=== PATIENT | female | born 1950 | race Caucasian/White ===

== ENCOUNTER 2018-09-06 11:10 | Inpatient (IN) | payer MEDICARE, MEDICAID ==
[2018-09-06] VITALS (11 sets, daily range): BP systolic 99–152; BP diastolic 54–87; BMI 17.0
[~2018-09-06] VITALS: Ht 165.1 cm; Wt 49.5 kg
[~2018-09-06 11:10] MED LIST changes: -GABA-547 PO; -IPRA3AMP10 IH; -MONT10TA4 PO; -PRED20TA6 PO
--- NOTE | 2018-09-06 11:16 | ER Report ---
History and Physical Time Seen By MD: 11:16 HPI/ROS CHIEF COMPLAINT: Shortness of breath HISTORY OF PRESENT ILLNESS: 68-year-old female patient presents to emergency room with complaint of shortness of breath. Patient states that she started ge tting sick on Friday. She states that she was having worsening shortness of breath for the last couple days. Today she states that she was significant short of breath. Patient states that she does not have oxygen at home. She states that she has not had any noticeable fever or chills. She states she is not taking any medication for this. She denies any nausea, vomiting or diarrhea. She denies any changes in her appetite. Patient states that she has any difficulties eating or drinking. Patient states she does have some pain to her upper chest that radiates up into her neck. She feels like this is more related with having to work to breathe. She states she does feel better now that she has supplemental oxygen on. REVIEW OF SYSTEMS: Respiratory: As noted above Cardiovascular: As noted above. Gastrointestinal: No vomiting, no abdominal pain. Musculoskeletal: No back pain. Allergies: Coded Allergies: Penicillins (Verified Allergy, Mild, RASH, SWELLING, 09/06/18) Home Meds Active Scripts Ipratropium/Albuterol Sulfate (IPRAT-ALBUT 0.5-3(2.5) MG/3 ML) 3 Ml Ampul.neb, 3 ML IH Q4-6H PRN for SHORTNESS OF BREATH, #1 BOX Prov:MARGO JACOBSEN [facility] 09/06/18 Prednisone (PREDNISONE) 20 Mg Tablet, 20 MG PO BID, #10 TAB Prov:MARGO JACOBSEN [facility] 09/06/18 Oseltamivir Phosphate (TAMIFLU) 75 Mg Cap, 75 MG PO BID, #9 CAP Prov:MARGO JACOBSEN [facility] 09/06/18 Reported Medications Montelukast Sodium (MONTELUKAST SODIUM) 10 Mg Tablet, 10 MG PO QDAY 09/06/18 Gabapentin (GABAPENTIN) 100 Mg Capsule, 100 MG PO HS 09/06/18 Ibuprofen (ADVIL) 200 Mg Tablet, 3 TAB PO BID 08/27/16 Albuterol Sulfate (VENTOLIN HFA) 18 Gm Inh, 2 PUFF INH Q4-6H, INH 08/27/16 Budesonide/Formoterol Fumarate (SYMBICORT 160-4.5 MCG INHALER) 10.2 Gm Inh, 10.2 GM INH BID, INH 08/27/16 Discontinued Scripts Prednisone 10 Mg Tab (PREDNISONE 10 MG TAB) 10 Mg Tablet, 10 MG PO DIRECTED, #30 TAB Take 4 tabs daily x 3 days, then 3 tab daily x 3 days, then 2 tabs daily x 3 days, then 1 tab daily x 3 days. Prov:MELINDA SAHA DO 08/30/16 Oseltamivir Phosphate (TAMIFLU) 75 Mg Cap, 75 MG PO BID, #10 CAP Prov:MELINDA SAHA DO 08/30/16 Past Medical/Surgical History Patient has a past medical history of pneumonia, influenza, COPD, arthritis. Patient has no pertinent surgical history. Reviewed Nurses Notes: Yes Hx Smoking: Yes Smoking Status: Current: Some Days Smoker Exposure to Second Hand Smoke?: No Hx Substance Use Disorder: No Hx Alcohol Use: Yes (Stopped 13 years ago.) Constitutional Vital Sign - Last 24 Hours 09/06/18 09/06/18 09/06/18 09/06/18 11:10 11:17 11:24 11:24 Temp 97.7 Pulse 103 103 Resp 22 B/P (MAP) 148/84 (105) 148/84 Pulse Ox 80 93 O2 Delivery Room Air Nasal Cannula O2 Flow Rate 3.0 09/06/18 09/06/18 09/06/18 09/06/18 11:30 11:35 11:35 11:40 Pulse 101 91 Resp 26 20 B/P (MAP) 156/86 (109) Pulse Ox 94 95 O2 Delivery Nasal Cannula Nasal Cannula O2 Flow Rate 3.0 3 09/06/18 09/06/18 09/06/18 09/06/18 11:42 12:00 12:10 12:15 Pulse 99 87 86 Resp 26 19 18 B/P (MAP) 124/79 (94) Pulse Ox 95 95 O2 Delivery Nasal Cannula Nasal Cannula O2 Flow Rate 3 3 09/06/18 09/06/18 09/06/18 09/06/18 12:45 12:49 12:50 12:50 Pulse 113 115 Resp 44 32 B/P (MAP) 162/91 (114) Pulse Ox 84 94 O2 Delivery Nasal Cannula Non-Rebreather O2 Flow Rate 3 15.0 09/06/18 09/06/18 09/06/18 09/06/18 12:54 12:58 12:58 12:58 Pulse 106 101 Resp 19 18 Pulse Ox 94 93 O2 Delivery Bi-PAP FiO2 40.0 40.0 09/06/18 09/06/18 09/06/18 09/06/18 12:59 12:59 13:00 13:04 Pulse 107 109 106 Resp 18 19 16 B/P (MAP) 180/129 (146) Pulse Ox 93 93 93 O2 Delivery Bi-PAP 09/06/18 13:09 Pulse 99 Resp 14 Pulse Ox 94 Physical Exam General Appearance: The patient is alert, has no immediate need for airway protection and no current signs of toxicity. Respiratory: Chest is non tender, lungs are diminished with wheezing to auscultation. Cardiac: regular rate and rhythm Gastrointestinal: Abdomen is soft and non tender, no masses, bowel sounds normal. Musculoskeletal: Neck: Neck is supple and non tender. Extremities have full range of motion and are non tender. Skin: No rashes or lesions. DIFFERENTIAL DIAGNOSIS: After history and physical exam differential diagnosis was considered for shortness of breath including but not limited to pulmonary infectious process, COPD, asthma, pulmonary embolus and congestive heart failure. Medical Decision Making Data Points Result Diagram: 09/06/18 1044 09/06/18 1044 Laboratory Hematology Test 09/06/18 00:00 09/06/18 10:44 09/06/18 11:22 09/06/18 12:47 Influenza Virus Type A (PCR) Positive (NEGATIVE) Influenza Virus Type B (PCR) Negative (NEGATIVE) Red Blood Count 6.19 M/uL (4.17-5.56) Mean Corpuscular Volume 90.5 fL (80.0-96.0) Mean Corpuscular Hemoglobin 29.9 pg (26.0-33.0) Mean Corpuscular Hemoglobin Concent 33.0 g/dL (32.0-36.0) Red Cell Distribution Width 15.8 % (11.5-14.5) Mean Platelet Volume 8.3 fL (7.2-11.1) Neutrophils (%) (Auto) 93.8 % (39.4-72.5) Lymphocytes (%) (Auto) 1.9 % (17.6-49.6) Monocytes (%) (Auto) 3.7 % (4.1-12.4) Eosinophils (%) (Auto) 0.5 % (0.4-6.7) Basophils (%) (Auto) 0.1 % (0.3-1.4) Nucleated RBC Relative Count (auto) 0.1 /100WBC Neutrophils # (Auto) 12.8 K/uL (2.0-7.4) Lymphocytes # (Auto) 0.3 K/uL (1.3-3.6) Monocytes # (Auto) 0.5 K/uL (0.3-1.0) Eosinophils # (Auto) 0.1 K/uL (0.0-0.5) Basophils # (Auto) 0.0 K/uL (0.0-0.1) Nucleated RBC Absolute Count (auto) 0.02 K/uL Peripheral Blood Smear Yes Y/N Sodium Level 137 mmol/L (137-145) Potassium Level 4.6 mmol/L (3.5-5.0) Chloride Level 99 mmol/L (98-107) Carbon Dioxide Level 31 mmol/L (22-31) Blood Urea Nitrogen 14 mg/dl (7-18) Creatinine 0.60 mg/dl (0.52-1.04) Glomerular Filtration Rate Calc > 60.0 Random Glucose 101 mg/dl (75-110) Calcium Level 9.7 mg/dl (8.4-10.2) Total Bilirubin 1.4 mg/dl (0.2-1.3) Aspartate Amino Transf (AST/SGOT) 140 U/L (0-35) Alanine Aminotransferase (ALT/SGPT) 124 U/L (0-56) Alkaline Phosphatase 296 U/L (0-126) Troponin I < 0.012 ng/ml B-Type Natriuretic Peptide 444 pg/ml (0-100) Total Protein 7.8 g/dl (6.3-8.2) Albumin 4.7 g/dl (3.5-5.0) Serum Alcohol < 10 mg/dl Blood Gas Puncture Site Right radial Blood Gas Patient Temperature 97.7 DEGREES Arterial Blood pH 7.31 (7.35-7.45) Arterial Blood Partial Pressure CO2 51 mmHg (32-37) Arterial Blood Partial Pressure O2 97 mmHg (60-80) Arterial Blood HCO3 26 mmol/L (20-26) Arterial Blood Oxygen Saturation 94 % (92-100) Arterial Blood Base Excess -1.0 mmol/L Hernando Test Acceptable Oxygen Liters/Minute 37 Urine Color Stefani Urine Clarity Clear Urine pH 5.0 pH (4.8-9.5) Urine Specific [place] 1.021 Urine Protein Negative mg/dL (NEGATIVE) Urine Glucose (UA) Negative mg/dL (NEGATIVE) Urine Ketones Trace mg/dL (NEGATIVE) Urine Blood Negative (NEGATIVE) Urine Nitrite Negative (NEGATIVE) Urine Bilirubin Negative (NEGATIVE) Urine Urobilinogen 4.0 mg/dL (0.2-1.9) Urine Leukocyte Esterase Negative (NEGATIVE) Urine RBC 1 /HPF (0-2/HPF) Urine WBC 1 /HPF (0-5/HPF) Urine Squamous Epithelial Cells Few /LPF (</=FEW) Urine Bacteria Negative /HPF (NONE-FEW) Urine Hyaline Casts Few /LPF (NONE-FEW) Urine Mucus Few /HPF (NONE-FEW) Chemistry Test 09/06/18 00:00 09/06/18 10:44 09/06/18 11:22 09/06/18 12:47 Influenza Virus Type A (PCR) Positive (NEGATIVE) Influenza Virus Type B (PCR) Negative (NEGATIVE) White Blood Count 13.7 k/uL (4.5-11.0) Red Blood Count 6.19 M/uL (4.17-5.56) Hemoglobin 18.5 g/dL (12.0-16.0) Hematocrit 56.0 % (34.0-47.0) Mean Corpuscular Volume 90.5 fL (80.0-96.0) Mean Corpuscular Hemoglobin 29.9 pg (26.0-33.0) Mean Corpuscular Hemoglobin Concent 33.0 g/dL (32.0-36.0) Red Cell Distribution Width 15.8 % (11.5-14.5) Platelet Count 886 K/uL (150-450) Mean Platelet Volume 8.3 fL (7.2-11.1) Neutrophils (%) (Auto) 93.8 % (39.4-72.5) Lymphocytes (%) (Auto) 1.9 % (17.6-49.6) Monocytes (%) (Auto) 3.7 % (4.1-12.4) Eosinophils (%) (Auto) 0.5 % (0.4-6.7) Basophils (%) (Auto) 0.1 % (0.3-1.4) Nucleated RBC Relative Count (auto) 0.1 /100WBC Neutrophils # (Auto) 12.8 K/uL (2.0-7.4) Lymphocytes # (Auto) 0.3 K/uL (1.3-3.6) Monocytes # (Auto) 0.5 K/uL (0.3-1.0) Eosinophils # (Auto) 0.1 K/uL (0.0-0.5) Basophils # (Auto) 0.0 K/uL (0.0-0.1) Nucleated RBC Absolute Count (auto) 0.02 K/uL Peripheral Blood Smear Yes Y/N Glomerular Filtration Rate Calc > 60.0 Calcium Level 9.7 mg/dl (8.4-10.2) Total Bilirubin 1.4 mg/dl (0.2-1.3) Aspartate Amino Transf (AST/SGOT) 140 U/L (0-35) Alanine Aminotransferase (ALT/SGPT) 124 U/L (0-56) Alkaline Phosphatase 296 U/L (0-126) Troponin I < 0.012 ng/ml B-Type Natriuretic Peptide 444 pg/ml (0-100) Total Protein 7.8 g/dl (6.3-8.2) Albumin 4.7 g/dl (3.5-5.0) Serum Alcohol < 10 mg/dl Blood Gas Puncture Site Right radial Blood Gas Patient Temperature 97.7 DEGREES Arterial Blood pH 7.31 (7.35-7.45) Arterial Blood Partial Pressure CO2 51 mmHg (32-37) Arterial Blood Partial Pressure O2 97 mmHg (60-80) Arterial Blood HCO3 26 mmol/L (20-26) Arterial Blood Oxygen Saturation 94 % (92-100) Arterial Blood Base Excess -1.0 mmol/L Hernando Test Acceptable Oxygen Liters/Minute 37 Urine Color Stefani Urine Clarity Clear Urine pH 5.0 pH (4.8-9.5) Urine Specific [place] 1.021 Urine Protein Negative mg/dL (NEGATIVE) Urine Glucose (UA) Negative mg/dL (NEGATIVE) Urine Ketones Trace mg/dL (NEGATIVE) Urine Blood Negative (NEGATIVE) Urine Nitrite Negative (NEGATIVE) Urine Bilirubin Negative (NEGATIVE) Urine Urobilinogen 4.0 mg/dL (0.2-1.9) Urine Leukocyte Esterase Negative (NEGATIVE) Urine RBC 1 /HPF (0-2/HPF) Urine WBC 1 /HPF (0-5/HPF) Urine Squamous Epithelial Cells Few /LPF (</=FEW) Urine Bacteria Negative /HPF (NONE-FEW) Urine Hyaline Casts Few /LPF (NONE-FEW) Urine Mucus Few /HPF (NONE-FEW) Toxicology Test 09/06/18 10:44 Serum Alcohol < 10 mg/dl Urinalysis Test 09/06/18 12:47 Urine Color Stefani Urine Clarity Clear Urine pH 5.0 pH (4.8-9.5) Urine Specific [place] 1.021 Urine Protein Negative mg/dL (NEGATIVE) Urine Glucose (UA) Negative mg/dL (NEGATIVE) Urine Ketones Trace mg/dL (NEGATIVE) Urine Blood Negative (NEGATIVE) Urine Nitrite Negative (NEGATIVE) Urine Bilirubin Negative (NEGATIVE) Urine Urobilinogen 4.0 mg/dL (0.2-1.9) Urine Leukocyte Esterase Negative (NEGATIVE) Urine RBC 1 /HPF (0-2/HPF) Urine WBC 1 /HPF (0-5/HPF) Urine Squamous Epithelial Cells Few /LPF (</=FEW) Urine Bacteria Negative /HPF (NONE-FEW) Urine Hyaline Casts Few /LPF (NONE-FEW) Urine Mucus Few /HPF (NONE-FEW) EKG/Imaging EKG Interpretation 12 lead EKG: Rhythm: normal sinus rhythm [place]: Left axis deviation QRS: Left ventricular hypertrophy with QRS widening ST segments: normal Imaging 2 VIEWS CHEST INDICATION: Respiratory distress. COMPARISON: 08/28/2016. FINDINGS: Cardiomediastinal silhouette and pulmonary vessels within normal limits. There is no focal infiltrate or lobar consolidation. There is no pneumothorax or pleural effusion. Mild emphysematous changes are again present along with chronic interstitial changes and postinflammatory changes seen apices. No discrete nodule. Upper abdomen is unremarkable. No acute bony abnormality. IMPRESSION: 1. Stable chest without acute cardiopulmonary disease. Report Dictated By: Stuart Riley at 09/06/2018 12:04 PM Report E-Signed By: Stuart Riley at 09/06/2018 12:06 PM ED Course/Re-evaluation ED Course Patient was admitted to exam room, history and physical were obtained. Differential diagnoses were considered. On examination lungs were diminished with wheezing, heart was regular, abdomen was soft nontender. An IV was started, a CBC, CMP, troponin, EKG, chest x-ray, influenza screen were done. Patient did have an elevated BNP of 444, the last time that was measured it was 307. An ABG was done which showed significant CO2 retention. The patient received a dose of Levaquin 25 mg of Solu-Medrol, a DuoNeb. She had significant improvement in her comfort with that. Patient was resting comfortably. I did discuss the lab results, including negative troponin, unremarkable CMP. Patient did have an elevated white count of 13,000 with left shift. I did discuss with patient that she is positive for influenza A and started her on Tamiflu. She felt as if she was able to go home. I began making arrangements for her to go home including home oxygen. I did want a urinalysis as the patient did have an elevated white count. When the patient got up to go to the bathroom she became very short of breath. When we got back to the emergency room she is still having significant amounts shortness of breath and felt so she is not able to breathe. We did give her some morphine and some Ativan which seemed to help, however we'll slowly had to put her on BiPAP. Has seemed to help considerably. At that time was decided the patient was not able to go home. I believe that the patient has a COPD exacerbation caused by the influenza virus. However think that she has such little reserves that even getting up to the bathroom just takes a major toll on her. I discussed the case with Dr. Herron, hospitalist, who agreed to accept the patient for admission to the ICU. The urinalysis was unremarkable. Chest x-ray was also negative. Decision to Disposition Date: Sep 06, 2018 Decision to Disposition Time: 12:33 Depart Departure Latest Vital Signs Vital Signs Date Time Temp Pulse Resp B/P (MAP) Pulse Ox O2 Delivery O2 Flow Rate FiO2 09/06/18 13:09 99 14 94 09/06/18 13:00 180/129 (146) 09/06/18 12:59 Bi-PAP 09/06/18 12:58 40.0 09/06/18 12:50 15.0 09/06/18 11:24 97.7 Impression: Primary Impression: COPD exacerbation Additional Impression: Influenza A Condition: Condition Unchanged Disposition: Admitted from ER Referrals: KELSIE GARCIA MD (PCP) New Scripts Ipratropium/Albuterol Sulfate (IPRAT-ALBUT 0.5-3(2.5) MG/3 ML) 3 Ml Ampul.neb 3 ML IH Q4-6H PRN for SHORTNESS OF BREATH, #1 BOX Prov: MARGO JACOBSEN 09/06/18 Prednisone (PREDNISONE) 20 Mg Tablet 20 MG PO BID, #10 TAB Prov: MARGO JACOBSEN 09/06/18 Oseltamivir Phosphate (TAMIFLU) 75 Mg Cap 75 MG PO BID, #9 CAP Prov: MARGO JACOBSEN 09/06/18 Problem Qualifiers MARGO JACOBSEN Sep 06, 2018 11:16
[2018-09-06] MEDS ORDERED: NS(*) 0.9% 500 ML BAG 500 ML IV ONE (11:22)
[2018-09-06] MEDS ORDERED: ALBUTEROL/IPRATROPIUM 3 ML NEB NEB ONE (11:25)
[2018-09-06] MEDS ORDERED: methylPREDNIS SUCC 125 MG/2ML IVP ONE (11:25)
[2018-09-06 11:32] LABS: PLATELET COUNT, AUTOMATED 886 K/uL (150-450)
[2018-09-06] MEDS ORDERED: MONT10TA4 PO (11:33)
[2018-09-06] MEDS ORDERED: GABA-547 PO (11:33)
[2018-09-06] MEDS ORDERED: OSELTAMIVIR PHOS 75 MG CAP PO ONE (12:10)
--- NOTE | 2018-09-06 12:10 | RADIOLOGY IMAGING REPORT ---
FACILITY: [facility] PATIENT NAME: Suyapa Álvarez : 1950 MR: [id number] V: [id number] EXAM DATE: ORDERING PHYSICIAN: MARGO JACOBSEN TECHNOLOGIST: Location: [facility] - [place] Patient: Suyapa Álvarez : 1950 Visit/Account:[id number] Date of Sevice: 09/06/2018 2 VIEWS CHEST INDICATION: Respiratory distress. COMPARISON: 08/28/2016. FINDINGS: Cardiomediastinal silhouette and pulmonary vessels within normal limits. There is no focal infiltrate or lobar consolidation. There is no pneumothorax or pleural effusion. Mild emphysematous changes are again present along with chronic interstitial changes and postinflamma tory changes seen apices. No discrete nodule. Upper abdomen is unremarkable. No acute bony abnormality. IMPRESSION: 1. Stable chest without acute cardiopulmonary disease. Report Dictated By: Stuart Riley at 09/06/2018 12:04 PM Report E-Signed By: Stuart Riley at 09/06/2018 12:06 PM WSN:[id number]
--- NOTE | 2018-09-06 12:13 | EKG ---
FACILITY: [facility] - [place] PATIENT NAME: GASTON ESCAMILLA : [id number] MR: [id number] V: [id number] EXAM DATE: ORDERING PHYSICIAN: MARGO JACOBSEN TECHNOLOGIST: VIANEY Contreras Reason : COPD Blood Pressure : / mmHG Vent. Rate : 097 BPM Atrial Rate : 097 BPM P-R Int : 162 ms QRS Dur : 132 ms QT Int : 380 ms P-R-T Axes : 078 -78 092 degrees QTc Int : 482 ms Normal sinus rhythm Left axis deviation Left bundle branch block Abnormal ECG When compared with ECG of 27-AUG-2016 11:54, premature atrial complexes are no longer present new LBBB ST elevation now present in Anterior leads Confirmed by Ac Rai ([id number]) on 09/06/2018 2:34:10 PM Referred By: Confirmed By:Ac Dash
[2018-09-06] MEDS ORDERED: PRED20TA6 PO (12:35)
[2018-09-06] MEDS ORDERED: OSE75 PO (12:35)
[2018-09-06] MEDS ORDERED: IPRA3AMP10 IH (12:35)
[2018-09-06] MEDS ORDERED: ALBUTEROL/IPRATROPIUM 3 ML NEB ONE (12:43)
[2018-09-06] MEDS ORDERED: MORPHINE 4 MG/ML SDV IVP ONE (12:45)
[2018-09-06] MEDS ORDERED: MORPHINE 4 MG/ML SDV ONE (12:47)
[2018-09-06] MEDS ORDERED: LORazepam 2 MG/ML VIAL ONE (12:49)
[2018-09-06] MEDS ORDERED: FLUSH 10 ML SYR IVP PRN (14:15)
[2018-09-06] MEDS ORDERED: ACETAMINOPHEN 325 MG TAB PO PRN (14:15)
[2018-09-06] MEDS ORDERED: LORazepam 2 MG/ML VIAL IVP ONE (14:30)
--- NOTE | 2018-09-06 14:44 | Antimicrobial Stewardship ---
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
[2018-09-06] MEDS: NS(*) 0.9% 1000 ML BAG 1,000 ML IV PRN (14:57)
--- NOTE | 2018-09-06 15:48 | History & Physical ---
History of Present Illness Chief Complaint dyspnea History of Present Illness 68F presented for MARRUFO. PMHx significant for COPD, hypoxia, limited medical care, current smoker. Reports feeling bad since Friday, had used rescue inhaler and was getting some relief until today when felt more short of breath. Denied any n/v or fevers. Was conversing in ER but deteriorated after returning from bathroom requiring BiPAP. She is influenza A positive, no infiltrate on CXR. Denies needing home O2 though there are conflicting reports of if she was previ ously taken off or stopped it herself. Admitted to ICU for close observation given rapid change in status in ER. History Problems: (1) Hx of cervical cancer Status: Chronic (2) COPD (chronic obstructive pulmonary disease) Status: Chronic Home Meds Active Scripts Ipratropium/Albuterol Sulfate (IPRAT-ALBUT 0.5-3(2.5) MG/3 ML) 3 Ml Ampul.neb, 3 ML IH Q4-6H PRN for SHORTNESS OF BREATH, #1 BOX Prov:MARGO JACOBSEN [facility] 09/06/18 Prednisone (PREDNISONE) 20 Mg Tablet, 20 MG PO BID, #10 TAB Prov:MARGO JACOBSEN 09/06/18 Oseltamivir Phosphate (TAMIFLU) 75 Mg Cap, 75 MG PO BID, #9 CAP Prov:MARGO JACOBSEN [facility] 09/06/18 Reported Medications Montelukast Sodium (MONTELUKAST SODIUM) 10 Mg Tablet, 10 MG PO QDAY 09/06/18 Gabapentin (GABAPENTIN) 100 Mg Capsule, 100 MG PO HS 09/06/18 Ibuprofen (ADVIL) 200 Mg Tablet, 3 TAB PO BID 08/27/16 Albuterol Sulfate (VENTOLIN HFA) 18 Gm Inh, 2 PUFF INH Q4-6H, INH 08/27/16 Budesonide/Formoterol Fumarate (SYMBICORT 160-4.5 MCG INHALER) 10.2 Gm Inh, 10.2 GM INH BID, INH 08/27/16 Discontinued Scripts Prednisone 10 Mg Tab (PREDNISONE 10 MG TAB) 10 Mg Tablet, 10 MG PO DIRECTED, #30 TAB Take 4 tabs daily x 3 days, then 3 tab daily x 3 days, then 2 tabs daily x 3 days, then 1 tab daily x 3 days. Prov:MELINDA SAHA DO 08/30/16 Oseltamivir Phosphate (TAMIFLU) 75 Mg Cap, 75 MG PO BID, #10 CAP Prov:MELINDA SAHA DO 08/30/16 Allergies: Coded Allergies: Penicillins (Verified Allergy, Mild, RASH, SWELLING, 09/06/18) Patient History: FH: asthma BROTHER OR SISTER FH: dementia BROTHER OR SISTER BROTHER OR SISTER FH: juvenile rheumatoid arthritis BROTHER OR SISTER FH: leukemia FATHER FH: ovarian cancer MOTHER Hx Smoking: Yes Smoking Status: Current: Some Days Smoker Exposure to Second Hand Smoke?: No Caffeine Intake: Coffee Caffeine/Cups Per Day: 4 Hx Alcohol Use: Yes (Stopped 13 years ago.) Hx Substance Use Disorder: No Social Drug Use: Former Review of Systems All Systems Reviewed/Normal: Yes, Except as Noted Respiratory: Shortness of Breath Gastrointestinal: No Nausea, No Vomiting Exam Vital Signs Vital Signs Date Time Temp Pulse Resp B/P (MAP) Pulse Ox O2 Delivery O2 Flow Rate FiO2 09/06/18 15:02 95 Bi-PAP 35.0 09/06/18 15:00 98.8 64 13 109/54 (72) 09/06/18 12:50 15.0 General Appearance: Awake, Afebrile Neuro: No Gross deficits ENT: Normal Cardiovascular: Normal Rhythm & Peripheral Pulses Respiratory: Other (decreased breath sounds, on BiPAP.) GI: Abd Soft and Non-Tender Extremities: Soft and Non Tender, Warm, Pulses, Perfused; No Edema Medical Decision Making Data Points Result Diagram: 09/06/18 1044 09/06/18 1044 EKG / Imaging EKG Interpretation LBBB Assessment and Plan Problems: (1) Acute respiratory failure with hypoxia and hypercapnia Assessment & Plan: Possible she is chronically in need of O2, Hgb of 18 would support chronic hypoxia. ABG shows mild acidosis with CO2 retention, likely chronically retains CO2 but exacerbated by current infection. Continue BiPAP, begin Solu-Medrol, breathing treatments. (2) COPD (chronic obstructive pulmonary disease) Status: Chronic Assessment & Plan: Possible she usually requires O2 and is non-compliant. Does not have supplemental O2 at home. Only medication is albuterol rescue inhaler. (3) Influenza A Status: Acute Assessment & Plan: Begin Tamiflu. (4) Thrombocytosis Status: Acute Assessment & Plan: Chronic, unclear etiology. (5) Erythrocytosis Assessment & Plan: Likely form chronic hypoxia based on history, may have component of dehydration. (6) Leukocytosis Assessment & Plan: Secondary to stress reaction and dehydration. Monitor. Venous Thromboembolism Antithrombotics Is Pt On Any Antithrombotics?: Yes Exam Sepsis Risk: Severe Sepsis Risk FARIBA GRACIA DO Sep 06, 2018 15:48
[2018-09-06] MEDS: ALBUTEROL/IPRATROPIUM 3 ML NEB NEB SCH ×2 (17:46→23:20)
--- NOTE | 2018-09-06 18:27 | RADIOLOGY IMAGING REPORT ---
[place] [facility] [place] NAME: Suyapa Álvarez : 1950 MR: [id number] V: [id number] EXAM DATE: ORDERING PHYSICIAN: FARIBA DENT TECHNOLOGIST: Location: [facility] [place] Patient: Suyapa Álvarez : 1950 Visit/Account:[id number] Date of Sevice: 09/06/2018 EXAMINATION: Complete abdominal ultrasound COMPARISON: None HISTORY: elevated bili, LFT, alk phos Findings: Standard complete abdominal ultrasound is performed. Pancreas: Visualized portions of the pancreas are unremarkable. Liver and portal vein: Negative. Gallbladder and biliary system: No gallbladder stone or sludge. No wall thickening, pericholecystic f luid, or sonographic Hernandez's. The visualized common bile duct is not dilated. Spleen: Negative. Visualized aorta and IVC: Negative. Right Kidney: 10.3 x 4.2 x 5.6 cm . No renal mass, stone, or hydronephrosis. Left Kidney: 11.5 x 5.0 x 5.2 cm . No renal mass, stone, or hydronephrosis. Ascites: None. IMPRESSION: Negative complete abdominal ultrasound. Report Dictated By: Brant Sainz MD at 09/06/2018 6:22 PM Report E-Signed By: Brant Sainz MD at 09/06/2018 6:24 PM [email or web address]
[2018-09-06] MEDS: OSELTAMIVIR PHOS 75 MG CAP PO SCH (20:29)
[2018-09-06] MEDS: methylPREDNIS SUCC 125 MG/2ML IVP SCH (20:30)
[2018-09-06] MEDS: ONDANSETRON 4 MG/2 ML VIAL IVP PRN (21:03)
[2018-09-06] MEDS: MORPHINE 4 MG/ML SDV IVP PRN (21:04)
[2018-09-06] MEDS ORDERED: ACETAMINOPHEN(*)1000 MG/100 ML 100 ML IVPB PRN (21:10)
[2018-09-07] VITALS (17 sets, daily range): BP systolic 97–136; BP diastolic 52–86; BMI 17.0
[2018-09-07] MEDS: NS(*) 0.9% 1000 ML BAG 1,000 ML IV PRN ×2 (02:47→11:16)
[2018-09-07] MEDS: MORPHINE 4 MG/ML SDV IVP PRN (03:09)
[2018-09-07 05:06] LABS: PLATELET COUNT, AUTOMATED 753 K/uL (150-450)
[2018-09-07] MEDS: ALBUTEROL/IPRATROPIUM 3 ML NEB NEB SCH ×4 (05:20→18:31)
[2018-09-07] MEDS: IBUPROFEN 600 MG TAB PO PRN ×2 (08:31→21:45)
[2018-09-07] MEDS: ALPRAZolam 0.25 MG TAB PO PRN (08:31)
--- NOTE | 2018-09-07 09:19 | Hospitalist Progress Note ---
Subjective Progress Notes Subjective This patient was admitted for influenza. She had no acute issues overnight. Patient Complains of: Cardiovascular: No: Chest Pain Respiratory: No: Shortness of Breath Physical Exam Vital Signs Date Time Temp Pulse Resp B/P (MAP) Pulse Ox O2 Delivery O2 Flow Rate FiO2 09/07/18 06:19 57 09/07/18 06:00 13 108/54 (72) 94 Bi-PAP 35.0 09/07/18 04:00 99.2 09/07/18 03:45 4.0 Intake and Output 09/07/18 06:59 Intake Total 1593 ml Output Total 545 ml Balance 1048 ml Intake Oral 100 ml IV Total 1493 ml Output Urine Total 545 ml Cardiovascular: Regular Rate and Rhythm Respiratory: Clear to Auscultation Result Diagram: 09/07/18 04509/07/18 0450 Assessment and Plan Problems: (1) Acute respiratory failure with hypoxia and hypercapnia Assessment & Plan: She did require BiPAP overnight, but is now tolerating an oxy mask. We will consider moving her to the floor later today. (2) COPD (chronic obstructive pulmonary disease) Status: Chronic Assessment & Plan: She is on nebulizers and IV steroids. (3) Influenza A Status: Acute Assessment & Plan: She did test positive for influenza A, and has been started on Tamiflu. (4) Thrombocytosis Status: Acute Assessment & Plan: She is a chronic smoker. (5) Erythrocytosis Assessment & Plan: Likely form chronic hypoxia based on history. Exam Sepsis Risk: Sepsis Risk MELINDA SAHA DO Sep 07, 2018 09:18
[2018-09-07] MEDS: methylPREDNIS SUCC 125 MG/2ML IVP SCH ×2 (10:02→20:46)
[2018-09-07] MEDS: OSELTAMIVIR PHOS 75 MG CAP PO SCH ×2 (10:02→20:45)
[2018-09-07] MEDS: ENOXAPARIN 40 MG/0.4ML SYR SC SCH (10:03)
[2018-09-07] MEDS: guaiFENesin 600 MG TABCR PO SCH ×2 (13:46→20:45)
[2018-09-07] MEDS: BUDESO/FORMOT 160/4.5 MCG 6 GM INH SCH (17:12)
[2018-09-07] MEDS: GABAPENTIN 100 MG CAP PO SCH (20:45)
[2018-09-08] MEDS: ONDANSETRON 4 MG/2 ML VIAL IVP PRN (00:24)
[2018-09-08] MEDS: ALPRAZolam 0.25 MG TAB PO PRN (00:31)
[2018-09-08] MEDS ORDERED: MAG HYD/AL HYD/SIMETH 30ML UDC PO PRN (00:45)
[2018-09-08] MEDS: NS(*) 0.9% 1000 ML BAG 1,000 ML IV PRN (01:26)
[2018-09-08 03:20] VITALS: BP 118/71
[2018-09-08] MEDS: BUDESO/FORMOT 160/4.5 MCG 6 GM INH SCH ×2 (05:14→17:07)
[2018-09-08] MEDS: ALBUTEROL/IPRATROPIUM 3 ML NEB NEB SCH ×4 (05:14→18:35)
[2018-09-08 05:52] LABS: PLATELET COUNT, AUTOMATED 796 K/uL (150-450)
[2018-09-08 08:27] VITALS: BP 116/72
[2018-09-08] MEDS: guaiFENesin 600 MG TABCR PO SCH ×2 (08:31→21:10)
[2018-09-08] MEDS: OSELTAMIVIR PHOS 75 MG CAP PO SCH ×2 (08:32→21:10)
[2018-09-08] MEDS: ENOXAPARIN 40 MG/0.4ML SYR SC SCH (08:32)
[2018-09-08] MEDS: methylPREDNIS SUCC 125 MG/2ML IVP SCH ×2 (08:37→21:10)
[2018-09-08 11:53] VITALS: BP 128/82
--- NOTE | 2018-09-08 13:08 | Hospitalist Progress Note ---
Subjective Progress Notes Subjective She reports overall improvement, but still SOB. Physical Exam Vital Signs Date Time Temp Pulse Resp B/P (MAP) Pulse Ox O2 Delivery O2 Flow Rate FiO2 09/08/18 11:53 98.5 100 128/82 (97) 88 Nasal Cannula 1.5 09/08/18 11:05 16 09/07/18 06:00 35.0 Intake and Output 09/08/18 07:00 Intake Total 1656 ml Output Total 1225 ml Balance 431 ml Intake Oral 656 ml IV Total 1000 ml Output Urine Total 1225 ml General Appearance: Alert, Awake, Other (mild wob) Respiratory: Other (Poor air movement diffusely) Extremities: No Edema Integumentary: No Jaundice, No Cyanosis Result Diagram: 09/08/18 0512 09/07/18 0450 Assessment and Plan Problems: (1) COPD (chronic obstructive pulmonary disease) Status: Chronic Assessment & Plan: She presented with 2 days of SOB and worsening MARRUFO. She is on nebulizers and IV steroids and overall improving. Still not moving air well on exam and still feels significant MARRUFO. (2) Influenza A Status: Acute Assessment & Plan: She did test positive for influenza A, and has been started on Tamiflu. (3) Acute respiratory failure with hypoxia and hypercapnia Status: Resolved Assessment & Plan: She did require BiPAP, but is now tolerating nasal canula. She was admitted to the ICU, but was moved out on 09/07. (4) Erythrocytosis Assessment & Plan: Likely form chronic hypoxia based on history. (5) Thrombocytosis Status: Acute Assessment & Plan: Chronic, unclear etiology. Exam Sepsis Risk: No Definite Risk SCAR MAGALLON MD Sep 08, 2018 13:08
[2018-09-08 16:28] VITALS: BP 140/87
[2018-09-08 20:04] VITALS: BP 134/70
[2018-09-08] MEDS: GABAPENTIN 100 MG CAP PO SCH (21:10)
[2018-09-09 03:53] VITALS: BP 139/80
[2018-09-09] MEDS: BUDESO/FORMOT 160/4.5 MCG 6 GM INH SCH (05:16)
[2018-09-09] MEDS: ALBUTEROL/IPRATROPIUM 3 ML NEB NEB SCH ×2 (05:16→11:13)
[2018-09-09 07:38] VITALS: BP 117/71
[2018-09-09 09:24] VITALS: Ht 165.1 cm; Wt 49.5 kg
[2018-09-09] MEDS ORDERED: PRED20TA6 PO (11:26)
[2018-09-09] MEDS ORDERED: OSE75 PO (11:26)
--- NOTE | 2018-09-09 12:01 | Hospitalist Depart ---
Discharge Summary Reason for Hosp/Final Diag: (1) COPD (chronic obstructive pulmonary disease) Status: Chronic Hospital Course & Plan: Due to acute influenza. She does continue to smoke cigarettes as well. She presented with 2 days of SOB and worsening dyspnea on exertion. She was placed on nebulizer therapy, IV steroids, Tamiflu, and supplemental oxygen. She showed slow improvement in her status. She was able to tolerate low levels of activity. She was felt to be stable and ready for discharge. She will be on supplemental oxygen at least temporarily. She states she has committed to quit smoking also. (2) Influenza A Status: Acute Hospital Course & Plan: She did test positive for influenza A. She was started on Tamiflu. She will need two more days of therapy. She will follow up closely with her primary care provider (Dr. Rsoy Haney). (3) Erythrocytosis Hospital Course & Plan: Likely form chronic hypoxia based on history. (4) Thrombocytosis Status: Acute Hospital Course & Plan: Chronic, unclear etiology. Departure Weight (Pounds): 109 Weight (Ounces): 1.0 Result Diagram: 09/08/18 0512 09/07/18 0450 Item Value Date Time White Blood Count 13.7 k/uL H 09/06/18 1044 Hemoglobin 18.5 g/dL H 09/06/18 1044 Hematocrit 56.0 % H 09/06/18 1044 Platelet Count 886 K/uL H 09/06/18 1044 Blood Gas Puncture Site Right radial 09/06/18 1122 Blood Gas Patient Temperature 97.7 DEGREES 09/06/18 1122 Arterial Blood pH 7.31 L 09/06/18 1122 Arterial Blood Partial Pressure CO2 51 mmHg *H 09/06/18 1122 Arterial Blood Partial Pressure O2 97 mmHg *H 09/06/18 1122 Arterial Blood HCO3 26 mmol/L 09/06/18 1122 Arterial Blood Oxygen Saturation 94 % 09/06/18 1122 Arterial Blood Base Excess -1.0 mmol/L 09/06/18 1122 Hernando Test Acceptable 09/06/18 1122 Oxygen Liters/Minute 37 09/06/18 1122 Oxygen Liters/Minute 35 09/07/18 0510 Hernando Test Acceptable 09/07/18 0510 Arterial Blood Base Excess 0.0 mmol/L 09/07/18 0510 Arterial Blood Oxygen Saturation 96 % 09/07/18 0510 Arterial Blood HCO3 26 mmol/L 09/07/18 0510 Arterial Blood Partial Pressure O2 89 mmHg H 09/07/18 0510 Arterial Blood Partial Pressure CO2 47 mmHg H 09/07/18 0510 Arterial Blood pH 7.35 09/07/18 0510 Blood Gas Patient Temperature 99.2 DEGREES 09/07/18 0510 Blood Gas Puncture Site Right radial 09/07/18 0510 D-Dimer Quantitative (PE/DVT) 0.48 ug/ml 08/27/16 1149 Urine Color Stefani 09/06/18 1247 Urine Clarity Clear 09/06/18 1247 Urine pH 5.0 pH 09/06/18 1247 Urine Specific [place] 1.021 09/06/18 1247 Urine Protein Negative mg/dL 09/06/18 1247 Urine Glucose (UA) Negative mg/dL 09/06/18 1247 Urine Ketones Trace mg/dL 09/06/18 1247 Urine Blood Negative 09/06/18 1247 Urine Nitrite Negative 09/06/18 1247 Urine Bilirubin Negative 09/06/18 1247 Urine Urobilinogen 4.0 mg/dL H 09/06/18 1247 Urine Leukocyte Esterase Negative 09/06/18 1247 Urine RBC 1 /HPF 09/06/18 1247 Urine WBC 1 /HPF 09/06/18 1247 Urine Squamous Epithelial Cells Few /LPF 09/06/18 1247 Urine Bacteria Negative /HPF 09/06/18 1247 Urine Hyaline Casts Few /LPF 09/06/18 1247 Urine Mucus Few /HPF 09/06/18 1247 Serum Alcohol < 10 mg/dl 09/06/18 1044 Influenza Virus Type A (PCR) Positive 09/06/18 0000 Influenza Virus Type B (PCR) Negative 09/06/18 0000 Troponin I < 0.012 ng/ml 09/06/18 2222 Troponin I < 0.012 ng/ml 09/06/18 1610 Troponin I < 0.012 ng/ml 09/06/18 1044 Albumin 4.7 g/dl 09/06/18 1044 Total Protein 7.8 g/dl 09/06/18 1044 Alkaline Phosphatase 296 U/L H 09/06/18 1044 Alanine Aminotransferase (ALT/SGPT) 124 U/L H 09/06/18 1044 Aspartate Amino Transf (AST/SGOT) 140 U/L H 09/06/18 1044 Total Bilirubin 1.4 mg/dl H 09/06/18 1044 B-Type Natriuretic Peptide 444 pg/ml H 09/06/18 1044 Calcium Level 9.7 mg/dl 09/06/18 1044 Random Glucose 101 mg/dl 09/06/18 1044 Glomerular Filtration Rate Calc > 60.0 09/06/18 1044 Creatinine 0.60 mg/dl 09/06/18 1044 Blood Urea Nitrogen 14 mg/dl 09/06/18 1044 Carbon Dioxide Level 31 mmol/L 09/06/18 1044 Chloride Level 99 mmol/L 09/06/18 1044 Potassium Level 4.6 mmol/L 09/06/18 1044 Sodium Level 137 mmol/L 09/06/18 1044 Imaging PATIENT NAME: Suyapa Escamilla : 1950 MR: [id number] V: [id number] EXAM DATE: ORDERING PHYSICIAN: MARGO JACOBSEN TECHNOLOGIST: Location: [facility] Patient: Suyapa Escamilla : 1950 Visit/Account:[id number] Date of Sevice: 09/06/2018 2 VIEWS CHEST INDICATION: Respiratory distress. COMPARISON: 08/28/2016. FINDINGS: Cardiomediastinal silhouette and pulmonary vessels within normal limits. There is no focal infiltrate or lobar consolidation. There is no pneumothorax or pleural effusion. Mild emphysematous changes are again present along with chronic interstitial changes and postinflammatory changes seen apices. No discrete nodule. Upper abdomen is unremarkable. No acute bony abnormality. IMPRESSION: 1. Stable chest without acute cardiopulmonary disease. Report Dictated By: Stuart Riley at 09/06/2018 12:04 PM Report E-Signed By: Stuart Riley at 09/06/2018 12:06 PM WSN:[id number] EKG PATIENT NAME: SUYAPA ESCAMILLA : [id number] MR: [id number] V: [id number] EXAM DATE: ORDERING PHYSICIAN: MARGO JACOBSEN TECHNOLOGIST: BITNER Test Reason : COPD Blood Pressure : / mmHG Vent. Rate : 097 BPM Atrial Rate : 097 BPM P-R Int : 162 ms QRS Dur : 132 ms QT Int : 380 ms P-R-T Axes : 078 -78 092 degrees QTc Int : 482 ms Normal sinus rhythm Left axis deviation Left bundle branch block Abnormal ECG When compared with ECG of 27-AUG-2016 11:54, premature atrial complexes are no longer present new LBBB ST elevation now present in Anterior leads Confirmed by Ac Rai ([id number]) on 09/06/2018 2:34:10 PM Referred By: Confirmed By:Ac Dash Condition: Improved Discharge: Home, Self Care Time Spent: > 30 min Discharge Instructions Home Meds Active Scripts Oseltamivir Phosphate (TAMIFLU) 75 Mg Cap, 75 MG PO BID for 2 Days, #4 CAP 0 Refills Prov:SOHAN MALAGON MD 09/09/18 Prednisone (PREDNISONE) 20 Mg Tablet, 20 MG PO BID, #7 TAB 0 Refills One tab twice a day for two days, then one tab once a day for two days, then one-half tab a day for two days then off. Prov:SOHAN MALAGON MD 09/09/18 Ipratropium/Albuterol Sulfate (IPRAT-ALBUT 0.5-3(2.5) MG/3 ML) 3 Ml Ampul.neb, 3 ML IH Q4-6H PRN for SHORTNESS OF BREATH, #1 BOX Prov:MARGO JACOBSEN 09/06/18 Reported Medications Montelukast Sodium (MONTELUKAST SODIUM) 10 Mg Tablet, 10 MG PO QDAY 09/06/18 Gabapentin (GABAPENTIN) 100 Mg Capsule, 100 MG PO HS 09/06/18 Ibuprofen (ADVIL) 200 Mg Tablet, 3 TAB PO BID 08/27/16 Albuterol Sulfate (VENTOLIN HFA) 18 Gm Inh, 2 PUFF INH Q4-6H, INH 08/27/16 Budesonide/Formoterol Fumarate (SYMBICORT 160-4.5 MCG INHALER) 10.2 Gm Inh, 10.2 GM INH BID, INH 08/27/16 Discontinued Scripts Oseltamivir Phosphate (TAMIFLU) 75 Mg Cap, 75 MG PO BID, #9 CAP Prov:MARGO JACOBSEN 09/06/18 Prednisone 10 Mg Tab (PREDNISONE 10 MG TAB) 10 Mg Tablet, 10 MG PO DIRECTED, #30 TAB Take 4 tabs daily x 3 days, then 3 tab daily x 3 days, then 2 tabs daily x 3 days, then 1 tab daily x 3 days. Prov:MELINDA SAHA DO 08/30/16 Oseltamivir Phosphate (TAMIFLU) 75 Mg Cap, 75 MG PO BID, #10 CAP Prov:MELINDA SAHA DO 08/30/16 Follow up Referrals: Family Practice with ROSY HANEY MD Diet: Regular Activity: As Tolerated, No Exertion Special Instructions: Home oxygen at 2L via nasal cannula continuously. Follow up with Dr. Haney in 1-2 weeks or sooner if any problems. Copies to: ROSY HANEY MD ; Venous Thromboembolism Antithrombotics Is Pt On Any Antithrombotics?: Yes SOHAN MALAGON MD Sep 09, 2018 12:01
[2018-09-09] MEDS: OSELTAMIVIR PHOS 75 MG CAP PO SCH (12:32)
[2018-09-09] MEDS: guaiFENesin 600 MG TABCR PO SCH (12:32)
== END 2018-09-09 13:00 | disposition home or self-care (01) | DRG 193 ==
LOC: ER 11:21 → ICU 13:10 → MED 09-07 16:15
PROVIDERS: ADMIT Internal Medicine; ATTEND Internal Medicine
PROC: 5A09357 Assistance with Respiratory Ventilation, Less than 24 Consecutive Hours, Continuous Positive Airway Pressure (ICD-10-PCS; principal; 2018-09-06)
DX: J10.1 Influenza due to other identified influenza virus with other respiratory manifestations (principal); J96.22 Acute and chronic respiratory failure with hypercapnia; J96.21 Acute and chronic respiratory failure with hypoxia; J44.1 Chronic obstructive pulmonary disease with (acute) exacerbation; E87.2 Acidosis; F17.210 Nicotine dependence, cigarettes, uncomplicated; D47.3 Essential (hemorrhagic) thrombocythemia; E86.0 Dehydration; D72.829 Elevated white blood cell count, unspecified; Z85.43 Personal history of malignant neoplasm of ovary; Z88.0 Allergy status to penicillin; Z99.81 Dependence on supplemental oxygen; Z91.19 Patient's noncompliance with other medical treatment and regimen
CPT/HCPCS: 36415; 36600; 71046; 76700; 80320; 81001; 82040; 82247; 82310; 82374; 82435; 82565; 82803; 82947; 83735; 83880; 84075; 84132; 84155; 84295; 84450; 84460; 84484; 84520; 85025; 87502; 93005; 93306; 94640; 94660; 94667; 94668; 96374; 96375; 99285; C1758; J0131; J1650; J2060; J2270; J2405; J2930; J7030; J7040

== ENCOUNTER → 2018-09-06 | Outpatient (CLI) | payer MEDICARE, MEDICAID ==
[~2018-09-06] MED LIST: ALB18R INH; BUDE10.2 INH; CALC500C PO; DUL100/5PT INH; ESTROGEN PATCH TD; GABA-547 PO; IBU200 PO; IBUP-1687 PO; IPRA3AMP10 IH; LEVO-85 PO; MONT10TA4 PO; OSE75 PO; PRED-1 PO; PRED20TA6 PO; Prednisone PO
[2018-09-07 07:34] VITALS: BMI 17.0
== END ==
LOC: AMB 10:09
PROVIDERS: ATTEND Nurse Practitioner
DX: R06.00 Dyspnea, unspecified (principal)
CPT/HCPCS: A0425; A0427

== ENCOUNTER 2018-09-10 03:13 | Emergency (ER) | payer MEDICARE, MEDICAID ==
[2018-09-09 09:24] VITALS: Wt 47.6 kg
--- NOTE | 2018-09-10 03:28 | ER Report ---
History and Physical Time Seen By MD: 03:27 Hx. of Stated Complaint: PATIENT BROUGHT IN VIA EMS, REPORTS SHORTNESS OF BREATH AND AIR HUNGER STARTED THIS EVENING. STATES SHE WAS DIAGNOSED WITH THE FLU YESTERDAY 09/09 HPI/ROS CHIEF COMPLAINT: Shortness of breath HISTORY OF PRESENT ILLNESS: This is a 68-year-old female. She was brought in by EMS tonight for worsening problems of shortness of breath. This started this caryn safia. She has been hospitalized recently here at [facility] for influenza. Admitted on 09/06/18, and discharged home yesterday on 09/09/18. Initially she was treated with BiPAP and later was weaned off the BiPAP and was doing much better. She does have a history of smoking. She was treated with Tamiflu while in the hospital as well as nebulizer therapy, IV steroids, and supplemental oxygen. She was discharged on supplemental oxygen. She had committed to quit smoking when she went home. He was also found to have erythrocytosis and thrombocytosis of unclear etiology, possibly due to chronic hypoxia. Tonight she called for emergency services when she started feeling much worse. [place] [facility]. EMS arrived and brought her in to the ER. Providing oxygen and nebulizer treatments. She is able to give single word answers but is in such severe respiratory distress it's hard for her to talk. REVIEW OF SYSTEMS: Unable to obtain Allergies: Coded Allergies: Penicillins (Verified Allergy, Mild, RASH, SWELLING, 09/06/18) Home Meds Active Scripts Oseltamivir Phosphate (TAMIFLU) 75 Mg Cap, 75 MG PO BID for 2 Days, #4 CAP 0 Refills Prov:SOHAN MALAGON MD 09/09/18 Prednisone (PREDNISONE) 20 Mg Tablet, 20 MG PO BID, #7 TAB 0 Refills One tab twice a day for two days, then one tab once a day for two days, then one-half tab a day for two days then off. Prov:SOHAN MALAGON MD 09/09/18 Ipratropium/Albuterol Sulfate (IPRAT-ALBUT 0.5-3(2.5) MG/3 ML) 3 Ml Ampul.neb, 3 ML IH Q4-6H PRN for SHORTNESS OF BREATH, #1 BOX Prov:MARGO JACOBSEN 09/06/18 Reported Medications Montelukast Sodium (MONTELUKAST SODIUM) 10 Mg Tablet, 10 MG PO QDAY 09/06/18 Gabapentin (GABAPENTIN) 100 Mg Capsule, 100 MG PO HS 09/06/18 Ibuprofen (ADVIL) 200 Mg Tablet, 3 TAB PO BID 08/27/16 Albuterol Sulfate (VENTOLIN HFA) 18 Gm Inh, 2 PUFF INH Q4-6H, INH 08/27/16 Budesonide/Formoterol Fumarate (SYMBICORT 160-4.5 MCG INHALER) 10.2 Gm Inh, 10.2 GM INH BID, INH 08/27/16 Discontinued Scripts Oseltamivir Phosphate (TAMIFLU) 75 Mg Cap, 75 MG PO BID, #9 CAP Prov:MARGO JACOBSEN [facility] 09/06/18 Prednisone 10 Mg Tab (PREDNISONE 10 MG TAB) 10 Mg Tablet, 10 MG PO DIRECTED, #30 TAB Take 4 tabs daily x 3 days, then 3 tab daily x 3 days, then 2 tabs daily x 3 days, then 1 tab daily x 3 days. Prov:MELINDA SAHA DO 08/30/16 Oseltamivir Phosphate (TAMIFLU) 75 Mg Cap, 75 MG PO BID, #10 CAP Prov:MELINDA SAHA DO 08/30/16 Reviewed Nurses Notes: Yes Hx Smoking: Yes Smoking Status: Current: Some Days Smoker Exposure to Second Hand Smoke?: No Hx Substance Use Disorder: No Hx Alcohol Use: Yes (Stopped 13 years ago.) Constitutional Vital Sign - Last 24 Hours 09/10/18 09/10/18 09/10/18 09/10/18 03:13 03:15 03:18 03:23 Pulse ??? 157 ? Resp 22 B/P (MAP) 140/121 Pulse Ox 90 O2 Delivery Non-Rebreather 09/10/18 09/10/18 09/10/18 09/10/18 03:30 03:32 03:33 03:35 Pulse 136 Resp 25 B/P (MAP) 104/85 (91) 162/142 (149) ???/??? (1665) Pulse Ox 95 09/10/18 09/10/18 09/10/18 09/10/18 03:38 03:40 03:43 03:45 Pulse 166 174 Resp 21 18 B/P (MAP) ???/??? (1665) 165/78 (107) Pulse Ox 94 93 09/10/18 09/10/18 09/10/18 09/10/18 03:50 03:53 03:55 03:58 Pulse 170 182 Resp 25 23 B/P (MAP) 159/122 (134) 144/131 (135) Pulse Ox 91 90 09/10/18 09/10/18 09/10/18 09/10/18 04:00 04:05 04:08 04:10 Pulse 141 Resp 16 B/P (MAP) 99/66 (77) 97/67 (77) 75/62 (66) Pulse Ox 92 09/10/18 09/10/18 09/10/18 09/10/18 04:13 04:15 04:18 04:20 Pulse 75 97 Resp 12 25 B/P (MAP) 101/94 (96) 94/86 (89) Pulse Ox 92 92 09/10/18 09/10/18 09/10/18 09/10/18 04:23 04:25 04:28 04:30 Pulse 99 155 Resp 23 27 B/P (MAP) 121/99 (106) 87/77 (80) Pulse Ox 88 86 09/10/18 09/10/18 09/10/18 09/10/18 04:30 04:33 04:35 04:38 Pulse 154 145 Resp 23 19 B/P (MAP) 90/66 (74) Pulse Ox 84 84 FiO2 60.0 09/10/18 09/10/18 09/10/18 09/10/18 04:40 04:43 04:45 04:48 Pulse 155 162 Resp 21 35 B/P (MAP) 107/99 (102) 108/64 (79) Pulse Ox 84 84 09/10/18 09/10/18 09/10/18 09/10/18 04:50 04:53 04:55 04:58 Pulse 151 158 Resp 15 15 B/P (MAP) 125/105 (112) 134/124 (127) Pulse Ox 89 90 09/10/18 09/10/18 09/10/18 09/10/18 05:00 05:03 05:05 05:06 Pulse 151 Resp 15 B/P (MAP) 96/78 (84) 105/86 (92) Pulse Ox 90 91 O2 Delivery Mechanical Ventilator FiO2 60.0 09/10/18 09/10/18 09/10/18 09/10/18 05:06 05:06 05:08 05:13 Pulse 147 141 137 Resp 14 18 20 Pulse Ox 93 90 FiO2 60.0 09/10/18 09/10/18 09/10/18 09/10/18 05:15 05:18 05:20 05:25 Pulse 154 153 Resp 16 B/P (MAP) 111/91 (98) 111/78 (89) 110/86 (94) Pulse Ox 90 90 09/10/18 09/10/18 09/10/18 09/10/18 05:30 05:35 05:40 05:45 B/P (MAP) 102/85 (91) 106/72 (83) 131/113 (119) 118/105 (109) 09/10/18 09/10/18 09/10/18 09/10/18 05:50 05:55 05:56 06:00 Temp 99.5 Pulse 150 166 144 Resp 24 21 43 B/P (MAP) 112/87 (95) 114/91 (99) 127/108 (114) Pulse Ox 88 89 89 09/10/18 09/10/18 09/10/18 09/10/18 06:05 06:10 06:15 06:20 Pulse 147 146 149 146 Resp 22 44 50 34 B/P (MAP) 105/26 (52) 105/70 (82) 116/82 (93) 139/102 (114) Pulse Ox 89 89 90 91 09/10/18 09/10/18 09/10/18 09/10/18 06:25 06:30 06:30 06:30 Pulse 160 ??? 145 Resp 21 B/P (MAP) ???/??? (1665) Pulse Ox 93 93 O2 Delivery Mechanical Ventilator FiO2 60.0 09/10/18 09/10/18 09/10/18 09/10/18 06:35 06:37 06:40 06:45 Pulse ??? 141 ? Resp 17 09/10/18 09/10/18 09/10/18 09/10/18 06:50 06:55 07:05 07:10 Pulse ? Intake and Output 09/09/18 09/09/18 09/10/18 15:00 23:00 07:00 Intake Total 2000 ml Output Total 100 ml Balance 1900 ml Physical Exam General Appearance: The patient is alert. She is in acute respiratory distress. Ill in appearance. Eyes: Pupils are equal, round. Reactive to light. No pallor, injection or icterus. ENT: Mucous membranes are dry. Otherwise normal oral mucosa. Posterior oropharynx is normal. Neck: Supple and non tender. Respiratory: Respiratory distress, increased work of breathing with accessory muscles and retractions. Very poor air movement throughout with some wheezing although faint on expiration. Cardiovascular: Tachycardia with a narrow complex rhythm. Occasional runs of more wide complex of several beats that looks like a ventricular tachycardia at times on the heart monitor. No edema. Faint heart sounds. Gastrointestinal: Abdomen is soft and non tender. Nondistended. Neurological: Alert and oriented x3. She is moving all extremities but very weak. I do not see any focal neurologic deficits but she is unable to cooperate with the neuro exam for me. Skin: Warm and dry. Is not diaphoretic. Musculoskeletal: No evidence of musculoskeletal pain or injury. DIFFERENTIAL DIAGNOSIS: After history and physical exam, differential diagnosis was considered for patient in respiratory distress, influenza and COPD exacerbation, home from the hospital yesterday but seeming to have worsened over the last 24 hours. Medical Decision Making Data Points Result Diagram: 09/10/18 0545 09/10/18 0343 Laboratory Hematology Test 09/10/18 03:43 09/10/18 04:57 09/10/18 05:45 09/10/18 05:59 Neutrophils % (Manual) 82 % (39.4-72.5) Lymphocytes % (Manual) 8 % (17.6-49.6) Atypical Lymphocytes % 7 % Monocytes % (Manual) 1 % (4.1-12.4) Eosinophils % (Manual) 1 % (0.4-6.7) Basophils % (Manual) 0 % (0.3-1.4) Metamyelocytes % 1 % Sodium Level 139 mmol/L (137-145) Potassium Level 5.5 mmol/L (3.5-5.0) Chloride Level 99 mmol/L (98-107) Carbon Dioxide Level 31 mmol/L (22-31) Blood Urea Nitrogen 21 mg/dl (7-18) Creatinine 0.50 mg/dl (0.52-1.04) Glomerular Filtration Rate Calc > 60.0 Random Glucose 172 mg/dl (75-110) Lactate 1.6 mmol/L (0.7-2.1) Calcium Level 10.3 mg/dl (8.4-10.2) Total Bilirubin 0.6 mg/dl (0.2-1.3) Aspartate Amino Transf (AST/SGOT) 56 U/L (0-35) Alanine Aminotransferase (ALT/SGPT) 88 U/L (0-56) Alkaline Phosphatase 207 U/L (0-126) Troponin I < 0.012 ng/ml Total Protein 7.3 g/dl (6.3-8.2) Albumin 4.3 g/dl (3.5-5.0) Blood Gas Puncture Site Right radial Blood Gas Patient Temperature 97.4 DEGREES Arterial Blood pH 7.17 (7.35-7.45) Arterial Blood Partial Pressure CO2 76 mmHg (32-37) Arterial Blood Partial Pressure O2 154 mmHg (60-80) Arterial Blood HCO3 28 mmol/L (20-26) Arterial Blood Oxygen Saturation 99 % (92-100) Arterial Blood Base Excess 0.0 mmol/L Hernando Test Acceptable Oxygen Liters/Minute 60 Red Blood Count 5.33 M/uL (4.17-5.56) Mean Corpuscular Volume 90.9 fL (80.0-96.0) Mean Corpuscular Hemoglobin 30.1 pg (26.0-33.0) Mean Corpuscular Hemoglobin Concent 33.1 g/dL (32.0-36.0) Red Cell Distribution Width 15.3 % (11.5-14.5) Mean Platelet Volume 7.5 fL (7.2-11.1) Neutrophils (%) (Auto) 88.4 % (39.4-72.5) Lymphocytes (%) (Auto) 4.1 % (17.6-49.6) Monocytes (%) (Auto) 6.8 % (4.1-12.4) Eosinophils (%) (Auto) 0.0 % (0.4-6.7) Basophils (%) (Auto) 0.7 % (0.3-1.4) Nucleated RBC Relative Count (auto) 0.0 /100WBC Neutrophils # (Auto) 19.6 K/uL (2.0-7.4) Lymphocytes # (Auto) 0.9 K/uL (1.3-3.6) Monocytes # (Auto) 1.5 K/uL (0.3-1.0) Eosinophils # (Auto) 0.0 K/uL (0.0-0.5) Basophils # (Auto) 0.1 K/uL (0.0-0.1) Nucleated RBC Absolute Count (auto) 0.01 K/uL Peripheral Blood Smear Yes Y/N Urine Color Yellow Urine Clarity Clear Urine pH 5.0 pH (4.8-9.5) Urine Specific Andrews 1.013 Urine Protein 30 mg/dL (NEGATIVE) Urine Glucose (UA) Negative mg/dL (NEGATIVE) Urine Ketones Negative mg/dL (NEGATIVE) Urine Blood Negative (NEGATIVE) Urine Nitrite Negative (NEGATIVE) Urine Bilirubin Negative (NEGATIVE) Urine Urobilinogen Negative mg/dL (0.2-1.9) Urine Leukocyte Esterase Negative (NEGATIVE) Urine RBC <1 /HPF (0-2/HPF) Urine WBC 1 /HPF (0-5/HPF) Urine Squamous Epithelial Cells None /LPF (NONE-FEW) Urine Bacteria Negative /HPF (NONE-FEW) Urine Hyaline Casts Many /LPF (NONE-FEW) Urine Mucus Few /HPF (NONE-FEW) Chemistry Test 09/10/18 03:43 09/10/18 04:57 09/10/18 05:45 09/10/18 05:59 Neutrophils % (Manual) 82 % (39.4-72.5) Lymphocytes % (Manual) 8 % (17.6-49.6) Atypical Lymphocytes % 7 % Monocytes % (Manual) 1 % (4.1-12.4) Eosinophils % (Manual) 1 % (0.4-6.7) Basophils % (Manual) 0 % (0.3-1.4) Metamyelocytes % 1 % Glomerular Filtration Rate Calc > 60.0 Lactate 1.6 mmol/L (0.7-2.1) Calcium Level 10.3 mg/dl (8.4-10.2) Total Bilirubin 0.6 mg/dl (0.2-1.3) Aspartate Amino Transf (AST/SGOT) 56 U/L (0-35) Alanine Aminotransferase (ALT/SGPT) 88 U/L (0-56) Alkaline Phosphatase 207 U/L (0-126) Troponin I < 0.012 ng/ml Total Protein 7.3 g/dl (6.3-8.2) Albumin 4.3 g/dl (3.5-5.0) Blood Gas Puncture Site Right radial Blood Gas Patient Temperature 97.4 DEGREES Arterial Blood pH 7.17 (7.35-7.45) Arterial Blood Partial Pressure CO2 76 mmHg (32-37) Arterial Blood Partial Pressure O2 154 mmHg (60-80) Arterial Blood HCO3 28 mmol/L (20-26) Arterial Blood Oxygen Saturation 99 % (92-100) Arterial Blood Base Excess 0.0 mmol/L Hernando Test Acceptable Oxygen Liters/Minute 60 White Blood Count 22.1 k/uL (4.5-11.0) Red Blood Count 5.33 M/uL (4.17-5.56) Hemoglobin 16.0 g/dL (12.0-16.0) Hematocrit 48.4 % (34.0-47.0) Mean Corpuscular Volume 90.9 fL (80.0-96.0) Mean Corpuscular Hemoglobin 30.1 pg (26.0-33.0) Mean Corpuscular Hemoglobin Concent 33.1 g/dL (32.0-36.0) Red Cell Distribution Width 15.3 % (11.5-14.5) Platelet Count 1094 K/uL (150-450) Mean Platelet Volume 7.5 fL (7.2-11.1) Neutrophils (%) (Auto) 88.4 % (39.4-72.5) Lymphocytes (%) (Auto) 4.1 % (17.6-49.6) Monocytes (%) (Auto) 6.8 % (4.1-12.4) Eosinophils (%) (Auto) 0.0 % (0.4-6.7) Basophils (%) (Auto) 0.7 % (0.3-1.4) Nucleated RBC Relative Count (auto) 0.0 /100WBC Neutrophils # (Auto) 19.6 K/uL (2.0-7.4) Lymphocytes # (Auto) 0.9 K/uL (1.3-3.6) Monocytes # (Auto) 1.5 K/uL (0.3-1.0) Eosinophils # (Auto) 0.0 K/uL (0.0-0.5) Basophils # (Auto) 0.1 K/uL (0.0-0.1) Nucleated RBC Absolute Count (auto) 0.01 K/uL Peripheral Blood Smear Yes Y/N Urine Color Yellow Urine Clarity Clear Urine pH 5.0 pH (4.8-9.5) Urine Specific Andrews 1.013 Urine Protein 30 mg/dL (NEGATIVE) Urine Glucose (UA) Negative mg/dL (NEGATIVE) Urine Ketones Negative mg/dL (NEGATIVE) Urine Blood Negative (NEGATIVE) Urine Nitrite Negative (NEGATIVE) Urine Bilirubin Negative (NEGATIVE) Urine Urobilinogen Negative mg/dL (0.2-1.9) Urine Leukocyte Esterase Negative (NEGATIVE) Urine RBC <1 /HPF (0-2/HPF) Urine WBC 1 /HPF (0-5/HPF) Urine Squamous Epithelial Cells None /LPF (NONE-FEW) Urine Bacteria Negative /HPF (NONE-FEW) Urine Hyaline Casts Many /LPF (NONE-FEW) Urine Mucus Few /HPF (NONE-FEW) Urinalysis Test 09/10/18 05:59 Urine Color Yellow Urine Clarity Clear Urine pH 5.0 pH (4.8-9.5) Urine Specific Andrews 1.013 Urine Protein 30 mg/dL (NEGATIVE) Urine Glucose (UA) Negative mg/dL (NEGATIVE) Urine Ketones Negative mg/dL (NEGATIVE) Urine Blood Negative (NEGATIVE) Urine Nitrite Negative (NEGATIVE) Urine Bilirubin Negative (NEGATIVE) Urine Urobilinogen Negative mg/dL (0.2-1.9) Urine Leukocyte Esterase Negative (NEGATIVE) Urine RBC <1 /HPF (0-2/HPF) Urine WBC 1 /HPF (0-5/HPF) Urine Squamous Epithelial Cells None /LPF (NONE-FEW) Urine Bacteria Negative /HPF (NONE-FEW) Urine Hyaline Casts Many /LPF (NONE-FEW) Urine Mucus Few /HPF (NONE-FEW) EKG/Imaging EKG Interpretation 12 lead EKG: Rhythm: Atrial fibrillation with rapid ventricular rate Imaging AP CHEST 09/10/2018 3:40 AM. INDICATION: short of breath COMPARISON: 09/06/2018. FINDINGS: Chronic hyperexpansion and bronchitic changes. No definite suspicious consolidation. No pleural effusion or pneumothorax. Central pulmonary vasculature is prominent, unchanged. Heart size is likely unchanged given differences in technique. IMPRESSION: Chronic hyperexpansion and bronchitic changes with no definite acute abnormality. Report Dictated By: Johnnie Watkins MD at 09/10/2018 4:07 AM ED Course/Re-evaluation Clinical Indication for ER IV: Hydration, IV Access ED Course Initially the patient was treated with BiPAP with continuous Xopenex therapy. She also had an IV placed with fluids running. Labs were obtained. EKG was tonight that shows like atrial fibrillation with rapid ventricular rate. I was able look at her old EKG and it does show what appears to be a sinus rhythm with a left bundle branch block that may have been new. Initial chest x-ray showed increased peribronchial markings but no infiltrates. The patient had initially seemed to start to improve with the BiPAP and then worsened so this was discontinued in favor of intubating the patient. Patient was intubated with a 7.5 ET tube using the glide scope. Pretreated with ketamine 100 mg IV, etomidate 0.3 mg/kg IV, and succinylcholine 1 mg/kg IV. Successful intubation. Subsequent x-ray showed good tube placement. The patient is being ventilated on SIMV with a pressure support of 10, PEEP of 5, and tidal volumes of about 400 mL. Initial blood gas showed a respiratory acidosis, FiO2 was decreased because the oxygen was elevated. Respiratory rate of 14-20 minutes attempt to reverse the respiratory acidosis and respiratory failure. She was kept sedated on propofol, and pressures seem to do well with this. Very variable on blood pressures, but mean arterial pressures staying above 65. Pulse coming down to the 140-150 range. Labs obtained with a BUNs of 21, creatinine 0.5, sodium 139, potassium 5.5, ch loride 99, bicarbonate 31, glucose 172. Elevation of AST, a LT, and alkaline phosphatase. Troponin is negative. CBC is pending. Initial blood gas values pH 7.17, PCO2 76, P02 154, bicarbonate 28, base excess zero. CBC pending. I spoke with Dr. Hazel, [place] [facility] patient for transfer. Decision to Disposition Date: Sep 10, 2018 Decision to Disposition Time: 05:26 Critical Care Time I spent a total of 70 minutes of critical care time in obtaining history, performing a physical exam, bedside monitoring of interventions, collecting and interpreting tests and discussion with consultants but not including time spent performing procedures. Transfer Facility Patient was [place] [facility] [place]. The transfer was emergent, and was required because the capabilities of the receiving hospital. Consent for transfer was assumed based on patient condition and situation. See EMTALA for transfer orders. Depart Departure Latest Vital Signs Vital Signs Date Time Temp Pulse Resp B/P (MAP) Pulse Ox O2 Delivery O2 Flow Rate FiO2 09/10/18 07:10 ??? 09/10/18 06:37 17 09/10/18 06:30 93 Mechanical Ventilator 60.0 09/10/18 06:25 ???/??? (1665) 09/10/18 05:56 99.5 Core Temperature (Celsius): 35.5 Impression: Primary Impression: Acute respiratory failure with hypoxia and hypercapnia Additional Impressions: Influenza A COPD exacerbation Condition: Critical Disposition: XFER TO [facility] Referrals: KELSIE GARCIA MD (PCP) Problem Qualifiers CATALINO ALBARADO MD Sep 10, 2018 03:28
[2018-09-10] MEDS ORDERED: LEVALBUTEROL 1.25 MG/3 ML NEB ONE (03:39)
[2018-09-10] MEDS ORDERED: LEVALBUTEROL 1.25 MG/3 ML NEB NEB ONE (03:40)
[2018-09-10] MEDS ORDERED: EMS NS 0.9%(*) 1000 ML BAG 1,000 ML IV ONE (03:40)
[2018-09-10] MEDS ORDERED: methylPREDNIS SUCC 125 MG/2ML IVP ONE (03:40)
[2018-09-10] MEDS ORDERED: NS(*) 0.9% 1000 ML BAG 1,000 ML IV ONE (03:40)
--- NOTE | 2018-09-10 04:15 | RADIOLOGY IMAGING REPORT ---
FACILITY: [facility] [place] PATIENT NAME: Suyapa Álvarez : 1950 MR: [id number] V: [id number] EXAM DATE: ORDERING PHYSICIAN: CATALINO ALBARADO TECHNOLOGIST: Location: [facility] Patient: Suyapa Álvarez : 1950 Visit/Account:[id number] Date of Sevice: 09/10/2018 AP CHEST 09/10/2018 3:40 AM. INDICATION: short of breath COMPARISON: 09/06/2018. FINDINGS: Chronic hyperexpansion and bronchitic changes. No definite suspicious consolidation. No pleural eff usion or pneumothorax. Central pulmonary vasculature is prominent, unchanged. Heart size is likely unchanged given differences in technique. IMPRESSION: Chronic hyperexpansion and bronchitic changes with no definite acute abnormality. Report Dictated By: Johnnie Watkins MD at 09/10/2018 4:07 AM Report E-Signed By: Johnnie Watkins MD at 09/10/2018 4:10 AM WSN:[id number]
[2018-09-10] MEDS ORDERED: LEVOPHED KIT (*) 1 IVSOL 0 KIT IV ONE (04:17)
--- NOTE | 2018-09-10 05:23 | EKG ---
FACILITY: [facility] PATIENT NAME: GASTON ESCAMILLA : [id number] MR: [id number] V: [id number] EXAM DATE: ORDERING PHYSICIAN: CATALINO ALBARADO TECHNOLOGIST: CAROL Test Reason : SOB Blood Pressure : / mmHG Vent. Rate : 164 BPM Atrial Rate : 150 BPM P-R Int : 000 ms QRS Dur : 118 ms QT Int : 306 ms P-R-T Axes : 000 270 083 degrees QTc Int : 505 ms Irregular wide complex tachycardia Left axis deviation Diffuse ST-T abnormalities Abnormal ECG Confirmed by SOHAN MALAGON ([id number]) on 09/10/2018 6:22:19 AM Referred By: Confirmed By:SOHAN MALAGON
[2018-09-10 05:29] LABS: PLATELET COUNT, AUTOMATED 1494 K/uL (150-450)
--- NOTE | 2018-09-10 06:09 | RADIOLOGY IMAGING REPORT ---
FACILITY: [facility] PATIENT NAME: Suyapa Álvarez : 1950 MR: [id number] V: [id number] EXAM DATE: ORDERING PHYSICIAN: CATALINO ALBARADO TECHNOLOGIST: Location: [facility] [place] Patient: Suyapa Álvarez : 1950 Visit/Account:[id number] Date of Sevice: 09/10/2018 CHEST SINGLE AP COMPARISONS: Single view chest dated earlier same day. ADDITIONAL PERTINENT HISTORY: Intubation FINDINGS: Life-support: Endotracheal tube with its tip 2 cm above the chris. Cardiomediastinal silhouette: Negative. Pulmonary vasculature: Mild atherosclerotic disease of the thoracic aortic arch. Lung armstrong: Background interstitial scarring. No segmental consolidative process. Pleural spaces: Negative. Osseous structures: Negative. Surrounding soft tissues: Negative. IMPRESSION: 1. Endotracheal tube in good position. 2. No acute cardiopulmonary disease. Report Dictated By: Braden Bullock MD at 09/10/2018 6:03 AM Report E-Signed By: Braden Bullock MD at 09/10/2018 6:05 AM WSN:[id number]
[2018-09-10] MEDS ORDERED: ALBUTEROL/IPRATROPIUM 3 ML NEB ONE (06:34)
[2018-09-10] MEDS ORDERED: KETAMINE HCL-NS 50 MG/5 ML SYR IVP ONE (06:50)
[2018-09-10] MEDS ORDERED: ETOMIDATE 20 MG/10 ML VIAL IVP ONE (06:50)
[2018-09-10] MEDS ORDERED: SUCCINYLCHOL CHL 200MG/10ML VL IVP ONE (06:50)
[2018-09-10 07:03] LABS: PLATELET COUNT, AUTOMATED 1094 K/uL (150-450)
[2018-09-10] MEDS ORDERED: PROPOFOL(*)1000 MG/100 ML VIAL 100 ML IV PRN (07:15)
== END 2018-09-10 06:45 | disposition short-term general hospital (02) ==
LOC: ER 03:46
DX: J96.02 Acute respiratory failure with hypercapnia (principal); J96.01 Acute respiratory failure with hypoxia; J09.X2 Influenza due to identified novel influenza A virus with other respiratory manifestations; J44.1 Chronic obstructive pulmonary disease with (acute) exacerbation
CPT/HCPCS: 31500; 36600; 71045; 81001; 82803; 83605; 84484; 85025; 87040; 93005; 94002; 94640; 94660; 96365; 96366; 96375; 99291; C1758; J0330; J2704; J2930; J3490; J7030; J7620; 82040; 82247; 82310; 82374; 82435; 82565; 82947; 84075; 84132; 84155; 84295; 84450; 84460; 84520

== ENCOUNTER → 2018-09-10 | Outpatient (CLI) | payer MEDICARE, MEDICAID ==
[2018-09-09 09:24] VITALS: BMI 18.1
[~2018-09-10] MED LIST changes: +GABA-547 PO; +IPRA3AMP10 IH; +MONT10TA4 PO; +PRED20TA6 PO
== END ==
LOC: AMB 02:25
PROVIDERS: ATTEND Nurse Practitioner
DX: R06.00 Dyspnea, unspecified (principal); R06.2 Wheezing; R53.1 Weakness; R50.9 Fever, unspecified; J44.9 Chronic obstructive pulmonary disease, unspecified
CPT/HCPCS: A0425; A0427

== ENCOUNTER → 2018-09-10 | Outpatient (REF) ==
[2018-09-09 09:24] VITALS: BMI 18.1
== END ==
LOC: AMB 05:48
PROVIDERS: ATTEND Nurse Practitioner
DX: Z02.9 Encounter for administrative examinations, unspecified (principal)

== ENCOUNTER 2019-01-21 13:30 | Outpatient (RCR) | payer MEDICARE, MEDICAID ==
[2018-09-09 09:24] VITALS: Wt 44.9 kg
[2018-11-13 12:56] VITALS: BP 118/62
[2018-11-13 13:48] LABS: PLATELET COUNT, AUTOMATED 193 K/uL (150-450)
--- NOTE | 2018-11-13 21:11 | ONCOLOGY CONSULTATION ---
EVENT DATE: November 13, 2018 REFERRING PHYSICIAN Ericka Sabillon MD REASON FOR CONSULTATION Establishment of care for a patient with essential thrombocythemia, JAK2 mutation positive. DIAGNOSIS Essential thrombocythemia, JAK2 positive. HEMATOLOGY/ONCOLOGY HISTORY Patient is a 68-year-old female who was transferred to [facility] ICU on the August from [facility] for acute respiratory failure due to influenza A. She presented to [facility] at that time with worsening shortness of breath and was intubated and subsequently transferred to [facility] for further management. On admission, her CBC showed white count 16.11, hemoglobin 15.3, platelets were 805,000. During her hospitalization, her platelet count increased to 1,028,000. Patient has been checked for JAK2 mutation, which came back positive, and patient started treatment with hydroxyurea with control of her count after that. PAST MEDICAL HISTORY 1. Arthritis. 2. Cervical cancer. 3. Osteoporosis. PAST SURGICAL HISTORY: 1. Hysterectomy. 2. Tubal ligation. SOCIAL HISTORY Patient is for about six years from her . 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 She quit smoking August 2018 after half pack a day for nearly 30 years. No abuse of alcohol or illicit drugs. FAMILY HISTORY Father with leukemia in 1963. Mother had ovarian cancer. Niece had breast cancer. CURRENT MEDICATIONS 1. Ipratropium/albuterol nebulizer every four to six hours. 2. Celecoxib 200 mg daily. 3. Hydroxyurea 500 mg twice daily. 4. Metoprolol tartrate 25 mg b.i.d. 5. Xarelto 20 mg daily. 6. Singulair 10 mg daily. 7. Gabapentin 100 mg at bedtime. 8. Albuterol inhaler two puffs by inhalation every four to six hours. 9. Symbicort inhaler. ALLERGIES PENICILLIN which caused swollen arms. REVIEW OF SYSTEMS CONSTITUTIONAL: No appetite or weight change. She has some chills. No fever or sweating. No recent infection. HEENT: Ears: No tinnitus or hearing problem. Nose: She has nasal discharge. No epistaxis. Throat: No sore throat or mouth ulcers. Eyes: No diplopia or visual changes. RESPIRATORY: No shortness of breath. She has cough with expectoration. No hemoptysis. She is using oxygen only at night. CARDIOVASCULAR: No chest pain, orthopnea, or paroxysmal nocturnal dyspnea (PND). No edema. No palpitations. GASTROINTESTINAL: She has occasional nausea. No vomiting. No diarrhea or constipation. No change in bowel movements. No heartburn or swallowing difficulties. No abdominal pain. No jaundice. No hematemesis, melena, or rectal bleeding. GENITOURINARY: No hematuria or dysuria. MUSCULOSKELETAL: She has pain in her back and generalized joint pain from osteoarthritis. NEUROLOGIC: She has tingling and numbness in her fingertips. No headaches or convulsions. HEMATOLOGIC/LYMPHATIC: No bleeding. She bruises easily. She is weak, tired, and fatigued. No enlarged lymph nodes. SKIN: No skin rash or lumps. PSYCHIATRIC: No anxiety or depression. PHYSICAL EXAMINATION GENERAL: Looks stable. Well developed, well nourished, and in no acute distress. VITAL SIGNS: Blood pressure 118/62, pulse 55 per minute, respirations 16 per minute, temperature 96.8, pulse ox 89% on room air. HEENT: Head: Atraumatic. No sinus tenderness to palpation. Eyes: No icterus or conjunctivitis. Mouth and Throat: No oral thrush or mucositis. NECK: Supple. No cervical or supraclavicular lymphadenopathy. LUNGS: Clear to auscultation and percussion bilaterally. HEART: Regular rate and rhythm. No gallops, murmurs, clicks, or rubs. ABDOMEN: Soft and lax. No tenderness. No hepatosplenomegaly. No masses. EXTREMITIES: No cyanosis, clubbing, or edema. LYMPHATICS: No peripheral lymphadenopathy. NEUROLOGIC: Conscious, alert, and oriented times three. No focal motor or sensory deficits. PSYCHIATRIC: Mood and affect appear normal. SKIN: No skin rash, bruise, or purpuric eruption. ASSESSMENT JAK2-positive essential thrombocythemia. Patient has been diagnosed recently. She is currently on hydroxyurea 500 mg twice daily. Her JAK2 mutation analysis came back positive for [id number] mutation, confirming the diagnosis. She started on hydroxyurea on the September, and she achieved a good control of her platelet count. I am planning to check her CBC today and CMP and uric acid, and I will see her in a month with the same labs until stabilization of the dose of the drug. Then, we will prolong the frequency between the visits after that. Patient is agreeable with the plan of management. PLAN 1. Hydroxyurea 500 mg twice daily and adjust the dose based on the platelet count. 2. CBC, chem panel, uric acid to be checked today. 3. Patient to return in one month with CBC, chem panel, and uric acid. 4. Patient currently on Xarelto blood thinner, so she is not using aspirin. 5. Patient to contact us for any new concerns or complaints. NATHALIE
--- NOTE | 2018-11-17 15:26 | NUR ---
Called patient and gave her the results of her labs done in the clinic on November 13. She verbalized understanding of results given.
[2018-12-17 12:16] VITALS: BP 110/62
[2018-12-17 12:19] LABS: PLATELET COUNT, AUTOMATED 145 K/uL (150-450)
--- NOTE | 2018-12-17 15:48 | ONCOLOGY FOLLOW UP NOTE ---
EVENT DATE: December 17, 2018 DIAGNOSIS Essential thrombocythemia, JAK2 mutation positive. CHIEF COMPLAINT Patient is here today for followup of her essential thrombocythemia, on hydroxyurea. HEMATOLOGY/ONCOLOGY HISTORY Patient is a 68-year-old female who was [place] [facility] [place] [facility] [place] due to [place] A. She presented to [facility] at that time with worsening shortness of breath and was intubated and subsequently transferred to [facility] for further management. On admission, her CBC showed white count 16.11, hemoglobin 15.3, platelets were 805,000. During her hospitalization, her platelet count increased to 1,028,000. Patient has been checked for JAK2 mutation, which came back positive, and patient started treatment with hydroxyurea with control of her count after that. Patient started treatment with hydroxyurea on the November. HISTORY OF PRESENT ILLNESS Patient is here today for followup of her essential thrombocythemia, on hydroxyurea. She is doing fine currently. She is complaining of nasal discharge. She has cough with expectoration and exertional shortness of breath. She has occasional nausea. She has pain in her lower back, elbows, and hips from arthritis. She has also neuropathy, weakness, tiredness, and fatigue. PAST MEDICAL HISTORY 1. Arthritis. 2. Cervical cancer. 3. Osteoporosis. PAST SURGICAL HISTORY: 1. Hysterectomy. 2. Tubal ligation. SOCIAL HISTORY Patient is for about six years from her . 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 She quit smoking August 2018 after half pack a day for nearly 30 years. No abuse of alcohol or illicit drugs. FAMILY HISTORY Father with leukemia in 1964. Mother had ovarian cancer. Niece had breast cancer. CURRENT MEDICATIONS 1. Ipratropium/albuterol nebulizer every four to six hours. 2. Celecoxib 200 mg daily. 3. Hydroxyurea 500 mg twice daily. 4. Metoprolol tartrate 25 mg b.i.d. 5. Xarelto 20 mg daily. 6. Singulair 10 mg daily. 7. Gabapentin 100 mg at bedtime. 8. Albuterol inhaler two puffs by inhalation every four to six hours. 9. Symbicort inhaler. ALLERGIES PENICILLIN which caused swollen arms. CONSTITUTIONAL: No appetite or weight change. No fever, chills, or sweating. No recent infection. HEENT: Ears: No tinnitus or hearing problem. Nose: She has nasal discharge. No epistaxis. Throat: No sore throat or mouth ulcers. Eyes: No diplopia or visual changes. RESPIRATORY: No shortness of breath. She has cough with expectoration and exertional shortness of breath. No hemoptysis. CARDIOVASCULAR: No chest pain, orthopnea, or paroxysmal nocturnal dyspnea (PND). No edema. No palpitations. GASTROINTESTINAL: She has occasional nausea. No vomiting. No diarrhea or constipation. No change in bowel movements. No heartburn or swallowing difficulties. No abdominal pain. No jaundice. No hematemesis, melena, or rectal bleeding. GENITOURINARY: No hematuria or dysuria. MUSCULOSKELETAL: She has pain in the lower back, elbows, and hips. NEUROLOGIC: She has neuropathy with tingling and numbness in her hands and feet. No headaches or convulsions. HEMATOLOGIC/LYMPHATIC: No bleeding or easy bruising. She is weak, tired, and fatigued. No enlarged lymph nodes. SKIN: No skin rash or lumps. PSYCHIATRIC: No anxiety or depression. PHYSICAL EXAMINATION GENERAL: Looks stable. Well developed, well nourished, and in no acute distress. VITAL SIGNS: Blood pressure 110/62, pulse 60 per minute, respirations 18 per minute, temperature 97.4, pulse ox 90% on room air. HEENT: Head: Atraumatic. No sinus tenderness to palpation. Eyes: No icterus or conjunctivitis. Mouth and Throat: No oral thrush or mucositis. NECK: Supple. No cervical or supraclavicular lymphadenopathy. LUNGS: Clear to auscultation and percussion bilaterally. HEART: Regular rate and rhythm. No gallops, murmurs, clicks, or rubs. ABDOMEN: Soft and lax. No tenderness. No hepatosplenomegaly. No masses. EXTREMITIES: No cyanosis, clubbing, or edema. LYMPHATICS: No peripheral lymphadenopathy. NEUROLOGIC: Conscious, alert, and oriented times three. No focal motor or sensory deficits. PSYCHIATRIC: Mood and affect appear normal. SKIN: No skin rash, bruise, or purpuric eruption. DIAGNOSTIC DATA CBC showed white 4.9, hemoglobin 12.6, hematocrit 36.8, platelets 145,000. Chem panel totally normal except BUN 20 and AST 39. ASSESSMENT JAK2 mutation positive essential thrombocythemia. Patient was diagnosed recently and started on hydroxyurea 500 mg twice daily. Her JAK2 mutation was positive for [id number] mutation, confirming her diagnosis. She started hydroxyurea on the September, and her platelet count currently is under control. Her initial platelet count was in the range of 1,028,000, and currently her platelet count is normal at 145,000. Her hemoglobin is 12.6 and white count 4.9. I am planning to continue the same dose of hydroxyurea at 500 mg twice daily. I will check her CBC every month, and I will see her again in three months with CBC and chemistry panel. PLAN 1. Hydroxyurea 500 mg twice daily. 2. CBC, chem panel, uric acid, and LDH to be checked with her next visit in three months. 3. CBC to be checked each month. 4. Patient to continue Xarelto, her blood thinner, so she is not going to use aspirin because of increased risk of bleeding. 5. Patient to contact us for any new concerns or complaints. NATHALIE
[~2019-01-21 13:30] MED LIST changes: +CELE-1 PO; +HYDR500C2 PO; +METO25TA93 PO; +RIVA20TA PO
[2019-01-21 14:06] LABS: PLATELET COUNT, AUTOMATED 167 K/uL (150-450)
[2019-01-21 14:48] VITALS: BP 126/76
--- NOTE | 2019-01-22 09:42 | NUR ---
Called and left patient a detailed voice mail message regarding her medication. 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 She was instructed to continue to take the hydroxurea BID on Friday/Friday/Friday/Friday/Friday and that she was to decrease to once daily on Friday & . RN left her direct phone number on the voice mail and told her to call confirming that she had received the message and understands the instructions or to contact me for any questions.
[2019-01-22] MEDS ORDERED: HYDR500C2 PO (09:47)
--- NOTE | 2019-01-22 12:20 | NUR ---
Patient returned call and left a message stating that she understands the instructions left to her and that she has no new questions.
== END 2019-02-10 ==
LOC: SPU 13:30
PROVIDERS: ATTEND Internal Medicine Hematology
DX: D69.3 Immune thrombocytopenic purpura (principal); Z79.01 Long term (current) use of anticoagulants; Z87.891 Personal history of nicotine dependence
CPT/HCPCS: 36415; 83615; 84550; 85025; G0463; 82040; 82247; 82310; 82374; 82435; 82565; 82947; 84075; 84132; 84155; 84295; 84450; 84460; 84520; 99202; 99212